=== PATIENT | male | born 1985 | race Hispanic/Latino ===

== ENCOUNTER 2020-08-27 04:17 | Emergency (ER) | payer OTHER ==
[2020-08-27] MEDS ORDERED: METHYLPREDNISOLONE SOD SUCC 125MG/2ML VIAL ONE (05:39)
== END 2020-08-27 05:49 | disposition home or self-care (01) ==
LOC: EDH 04:17
DX: S50.02XA Contusion of left elbow, initial encounter (principal); W11.XXXA Fall on and from ladder, initial encounter; Y93.89 Activity, other specified; Y92.89 Other specified places as the place of occurrence of the external cause; Y99.8 Other external cause status
CPT/HCPCS: 73060; 73070; 96372; 99284; J2930